=== PATIENT | male | born 1930 | race Caucasian/White ===

== ENCOUNTER 2017-08-14 18:04 | Emergency (ER) | payer BC, MEDICARE ==
--- NOTE | 2017-08-14 18:16 | Emergency Department Record ---
History of Present Illness - General Source: Patient, Family Mode of Arrival: Ambulatory Limitations: No limitations - History of Present Illness Initial Comments: 87 yo male presents with back pain. He has a recent known diagnosis of ureteral cancer. The pain started this morning. The pain is a throbbing feeling across the lower back. No abdominal pain. No nausea or vomiting. No fevers. His ureteral cancer was discovered about 4-5 months ago. He has a stent in the right kidney that Dr Addison placed and is now followed by Dr Broderick. His is undergoing chemotherapy for the cancer as well. He has had 2 rounds of chemo. No blood in the urine or in the stools. No numbness or tingling. No radiation to the legs or abdomen. MD Complaint: Back pain -: Hour(s) (9) Place: Home Radiation: None, Other (goes across the lower back) Severity: Moderate Quality: Aching Consistency: Intermittent Improves With: Other (better if standing, worse if sitting) Worsens With: Other (sitting) Context: Other (No injury) Associated Symptoms: Denies other symptoms <BONITA ALVA - Last Filed: 08/14/17 19:11> <Pauline Mauricio - Last Filed: 08/14/17 21:59> - General Chief Complaint: Back Pain/Injury Stated Complaint: CANCER AND LOWER BACK PAIN Time Seen by Provider: 08/14/17 18:11 - Related Data Home Medications Medication Instructions Recorded Confirmed Last Taken Aspirin [Aspir-Low] 81 mg PO DAILY 08/14/17 08/14/17 Unknown Allergies Allergy/AdvReac Type Severity Reaction Status Date / Time No Known Drug Allergies Allergy Verified 08/14/17 18:08 Review of Systems Constitutional: Denies: Chills, Fever, Malaise, Weakness Eyes: Denies: Eye discharge, Eye pain, Photophobia, Vision change ENT: Denies: Congestion, Throat pain Respiratory: Denies: Cough, Dyspnea, Hemoptysis, Stridor, Wheezes Cardiovascular: Denies: Chest pain, Palpitations, Syncope Endocrine: Denies: Fatigue, Polydipsia, Polyuria Gastrointestinal: Denies: Abdominal pain, Diarrhea, Nausea, Vomiting Genitourinary: Denies: Dysuria, Frequency, Hematuria Musculoskeletal: Reports: As per HPI, Back pain. Denies: Arthralgia Skin: Denies: Bruising, Change in color, Rash Neurological: Denies: Abnormal gait, Numbness, Tingling, Weakness Psychiatric: Denies: Anxiety Hematological/Lymphatic: Denies: Blood Clots, Easy bleeding, Easy bruising, Swollen glands <BONITA ALVA - Last Filed: 08/14/17 19:11> Physical Exam - General General Appearance: Alert, Oriented x3, Cooperative, No acute distress Limitations: No limitations - Head Head exam: Normal inspection - Eye Eye exam: Normal appearance. negative: Conjunctival injection, Periorbital swelling, Scleral icterus - ENT ENT exam: Normal exam, Mucous membranes moist Ear exam: Normal external inspection Nasal Exam: Normal inspection - Neck Neck exam: Normal inspection - Respiratory Respiratory exam: Normal lung sounds bilaterally. negative: Respiratory distress - Cardiovascular Cardiovascular Exam: Regular rate, Normal rhythm, Normal heart sounds - GI/Abdominal GI/Abdominal exam: Soft. negative: Distended, Guarding, Rebound, Rigid, Tenderness - Rectal Rectal exam: Deferred - exam: Deferred - Extremities Extremities exam: Full ROM, Normal capillary refill, Pedal edema (bilateral). negative: Normal inspection, Joint swelling, Tenderness - Back Back exam: Reports: Normal inspection, Muscle spasm. Denies: CVA tenderness (R) , CVA tenderness (L), Paraspinal tenderness, Rash noted, Tenderness, Vertebral tenderness - Neurological Neurological exam: Alert, Normal gait, Oriented X3 - Psychiatric Psychiatric exam: Normal affect, Normal mood - Skin Skin exam: Dry, Intact, Normal color, Warm <BONITA ALVA - Last Filed: 08/14/17 19:11> Course - Reevaluation(s) Reevaluation #1: EMR reviewed Prior CT of the chest and abdomen and pelvis reviewed 08/14/17 18:35 08/14/17 19:11 The labs were reviewed CBC with WBC 3.5, Hgb of 14.6 with PLATELETS of 29 The CMP is negative for acute changes with normal GFR > 60 Lactic Acid is 2.3 08/14/17 19:18 The case was turned over to Dr Mauricio for shift turnover Refer to her chart for additional results including the CT. <BONITA ALVA - Last Filed: 08/14/17 19:11> Vital Signs 08/14/17 08/14/17 08/14/17 18:09 19:39 20:44 Temperature 98.5 F Pulse Rate 84 Pulse Rate [ 66 77 Pulse Ox Probe] Respiratory 22 16 16 Rate Blood Pressure 175/92 Blood Pressure 131/76 136/78 [Right Arm] Pulse Ox 98 97 96 - Reevaluation(s) Reevaluation #2: 08/14/17 21:51 pt is pain free. ct shows stent in place and no further hydronephrosis. pt has an area that could be early diverticulitis however he had this finding in a previous ct and he has no llq tenderness or other findings suspicious of divertivulitis. findings and labs d/w dr curiel 08/14/17 21:54 <Pauline Mauricio - Last Filed: 08/14/17 21:59> Medical Decision Making - Lab Data Result diagrams: 08/14/17 18:38 08/14/17 18:38 <BONITA ALVA - Last Filed: 08/14/17 19:11> - Lab Data Result diagrams: 08/14/17 18:38 08/14/17 18:38 Lab Results 08/14/17 08/14/17 08/14/17 Range/Units 18:38 18:38 18:38 WBC 3.5 L (4.2-12.2) K/uL RBC 5.13 (4.40-5.70) M/uL Hgb 14.6 (14.0-18.0) gm/dl Hct 44.4 (42.0-52.0) % MCV 86.5 (81-97) fl MCH 28.5 (27-33) pg MCHC 32.9 (32-36) g/dl RDW 13.2 (11.5-14.5) % Plt Count 29 L* (130-400) K/uL MPV 8.6 (7.4-10.4) fl Neutrophils % 61.0 (47-80) % Band Neutrophils % 4.0 (0-5) % Eosinophils % Not Reportable Basophils % Not Reportable Lymphocytes 27.0 (16-45) % Monocytes 4.0 (0-9) % Platelet Estimate Decreased (NORMAL) RBC Morphology Normal Eosinophil Count 4.0 (0-6) % PT 11.4 (9.5-12.1) SECONDS INR 1.05 APTT 27.00 (24.5-39.1) SECONDS Sodium (136-145) mmol/L Potassium (3.4-4.5) mmol/L Chloride (98-107) mmol/L Carbon Dioxide (22-29) mmol/L Anion Gap (7-16) BUN (8-23) mg/dL Creatinine (0.7-1.2) mg/dL Estimated GFR mL/min Random Glucose (74-109) mg/dL Lactic Acid Calcium (8.8-10.2) mg/dL Total Bilirubin (0.2-1.0) mg/dL AST (10.0-50.0) U/L ALT (<41) U/L Alkaline Phosphatase (40-129) U/L Total Protein (6.6-8.7) g/dL Albumin (4.0-5.0) g/dL Globulin (1.4-4.8) gm/dL Albumin/Globulin Ratio (1.1-1.8) Urine Color Urine Appearance Urine pH (5.0-8.0) Ur Specific [place] (1.002-1.030) Urine Protein (NEGATIVE) Urine Glucose (UA) (NEGATIVE) Urine Ketones (NEGATIVE) Urine Blood (NEGATIVE) Urine Nitrite (NEGATIVE) Urine Bilirubin (NEGATIVE) Urine Urobilinogen (0.20 - 1.00) E.U./dL Ur Leukocyte Esterase (NEGATIVE) Urine RBC (NONE SEEN) Urine WBC (0-2/hpf) Urine Bacteria ABO Group O Rh Factor Positive Antibody Screen Negative (NEGATIVE) 08/14/17 08/14/17 08/14/17 Range/Units 18:38 18:38 21:00 WBC (4.2-12.2) K/uL RBC (4.40-5.70) M/uL Hgb (14.0-18.0) gm/dl Hct (42.0-52.0) % MCV (81-97) fl MCH (27-33) pg MCHC (32-36) g/dl RDW (11.5-14.5) % Plt Count (130-400) K/uL MPV (7.4-10.4) fl Neutrophils % (47-80) % Band Neutrophils % (0-5) % Eosinophils % Basophils % Lymphocytes (16-45) % Monocytes (0-9) % Platelet Estimate (NORMAL) RBC Morphology Eosinophil Count (0-6) % PT (9.5-12.1) SECONDS INR APTT (24.5-39.1) SECONDS Sodium 136 (136-145) mmol/L Potassium 4.6 H (3.4-4.5) mmol/L Chloride 96 L (98-107) mmol/L Carbon Dioxide 24.0 (22-29) mmol/L Anion Gap 16.0 (7-16) BUN 19 (8-23) mg/dL Creatinine 0.9 (0.7-1.2) mg/dL Estimated GFR > 60 mL/min Random Glucose 108 (74-109) mg/dL Lactic Acid Cancelled 2.3 H Calcium 9.4 (8.8-10.2) mg/dL Total Bilirubin 0.50 (0.2-1.0) mg/dL AST 21 (10.0-50.0) U/L ALT 15 (<41) U/L Alkaline Phosphatase 140 H (40-129) U/L Total Protein 7.4 (6.6-8.7) g/dL Albumin 3.7 L (4.0-5.0) g/dL Globulin 3.7 (1.4-4.8) gm/dL Albumin/Globulin Ratio 1.0 L (1.1-1.8) Urine Color Yellow Urine Appearance Sl cloudy Urine pH 7.0 (5.0-8.0) Ur Specific [place] 1.010 (1.002-1.030) Urine Protein Negative (NEGATIVE) Urine Glucose (UA) Negative (NEGATIVE) Urine Ketones Negative (NEGATIVE) Urine Blood Large H (NEGATIVE) Urine Nitrite Negative (NEGATIVE) Urine Bilirubin Negative (NEGATIVE) Urine Urobilinogen 0.2 (0.20 - 1.00) E.U./dL Ur Leukocyte Esterase Trace H (NEGATIVE) Urine RBC 16 - 25 (NONE SEEN) Urine WBC 3 - 5 (0-2/hpf) Urine Bacteria Few ABO Group Rh Factor Antibody Screen (NEGATIVE) <Pauline Mauricio - Last Filed: 08/14/17 21:59> Disposition <BONITA ALVA - Last Filed: 08/14/17 19:11> Disposition: Discharge <Pauline Mauricio - Last Filed: 08/14/17 21:59> Clinical Impression: Thrombocytopenia Back pain Qualifiers: Back pain location: low back pain Chronicity: acute Back pain laterality: bilateral Sciatica presence: without sciatica Qualified Code(s): M54.5 - Low back pain Disposition: Home, Self-Care Condition: (1) Good Instructions: Low Back Strain (ED), Immune Thrombocytopenia (ED) Additional Instructions: follow up with dr curiel in am. avoid falling. return sooner if worse Forms: Patient Portal Access Quality - Quality Measures Quality Measures: N/A - Blood Pressure Screening Does Patient Have Any of the Following: No Blood Pressure Classification: Hypertensive Reading Systolic Measurement: 175 Diastolic Measurement: 92 Screening for High Blood Pressure: < Pre-Hypertensive BP, F/U Documented > [ G8950] Pre-Hypertensive Follow-up Interventions: Referral to alternative/primary care provider. <BONITA ALVA - Last Filed: 08/14/17 19:11> - Blood Pressure Screening Does Patient Have Any of the Following: No Blood Pressure Classification: Hypertensive Reading Systolic Measurement: 175 Diastolic Measurement: 92 <Pauline Mauricio - Last Filed: 08/14/17 21:59>
[2017-08-14] MEDS ORDERED: MORPHINE SULFATE 5 MG/ML PFS IVP ONE (18:35)
[2017-08-14 18:49] LABS: HEMATOCRIT 44.4 % (42.0-52.0); HEMOGLOBIN 14.6 gm/dl (14.0-18.0); MEAN CELL VOLUME 86.5 fl (81-97); MEAN CORPUSCULAR HEMOGLOBIN 28.5 pg (27-33); MEAN CORPUSCULAR HGB CONC 32.9 g/dl (32-36); MEAN PLATELET VOLUME 8.6 fl (7.4-10.4); RED BLOOD COUNT 5.13 M/uL (4.40-5.70); RED CELL DISTRIBUTION WIDTH 13.2 % (11.5-14.5); WHITE BLOOD COUNT W/O DIFF 3.5 K/uL (4.2-12.2)
[2017-08-14 19:01] LABS: PLATELET COUNT 29 K/uL (130-400)
[2017-08-14 19:02] LABS: INR 1.05; PLATELET ESTIMATE DECREASED (NORMAL); PROTHROMBIN TIME (PATIENT) 11.4 SECONDS (9.5-12.1)
[2017-08-14 19:06] LABS: ALBUMIN 3.7 g/dL (4.0-5.0); ALKALINE PHOSPHATASE 140 U/L (40-129); ALT/SGPT 15 U/L (<41); AST/SGOT 21 U/L (10.0-50.0); BLOOD UREA NITROGEN 19 mg/dL (8-23); CREATININE 0.9 mg/dL (0.7-1.2); EST GLOMERULAR FILTRATION RATE > 60 mL/min; GLUCOSE,RANDOM 108 mg/dL (74-109); TOTAL PROTEIN 7.4 g/dL (6.6-8.7)
[2017-08-14 19:50] LABS: ABO GROUP O; ANTIBODY SCREEN NEGATIVE (NEGATIVE); RH TYPE POSITIVE
[2017-08-14 21:07] LABS: URINE BILIRUBIN NEGATIVE (NEGATIVE); URINE BLOOD LARGE (NEGATIVE); URINE COLOR YELLOW; URINE GLUCOSE (UA) NEGATIVE (NEGATIVE); URINE KETONE NEGATIVE (NEGATIVE); URINE LEUKOCYTE ESTERASE TRACE (NEGATIVE); URINE NITRITE NEGATIVE (NEGATIVE); URINE PROTEIN NEGATIVE (NEGATIVE); URINE UROBILINOGEN 0.2 E.U./dL (0.20 - 1.00)
[2017-08-14 21:16] LABS: URINE BACTERIA FEW; URINE RBC 16 - 25 (NONE SEEN)
[2017-08-14 21:17] LABS: URINE APPEARANCE SL CLOUDY
[2017-08-14] MEDS ORDERED: HYDROCODONE/APAP 5/325MG TABLET PO ONE (21:58)
--- NOTE | 2017-08-16 09:58 | CT SCAN REPORT ---
DATE: 08/14/2017. EXAM: CT SCAN OF THE ABDOMEN AND PELVIS. HISTORY: Lower back pain. TECHNIQUE: CT of the abdomen and pelvis was performed following the intravenous administration of 100 mL of Omnipaque 300 contrast. Oral contrast was also utilized. COMPARISON: Prior CT urogram from 04/23/2017. FINDINGS: Limited evaluation of the lung bases is unremarkable. Degenerative changes of the lumbar spine. Osseous structures are otherwise grossly intact. Fatty infiltrative change to the liver. No focal liver lesions. The spleen, adrenal glands, and pancreas are unremarkable. The gallbladder is present. Simple cyst in the superior pole of the left kidney. There is a right ureteral stent in place. Resolution of previously described right-sided hydronephrosis. Redemonstrated is retroperitoneal adenopathy, the largest node in the distal aortocaval recess measuring 1.6 x 1.4 cm. Similar findings were present previously. No free air or free fluid. No evidence for bowel obstruction. Fat -containing anterior abdominal wall hernia near the midline. Sigmoid diverticulosis. Minor inflammatory fat stranding in the left lower quadrant could reflect minor diverticulitis. However, similar findings were present on the prior CT. IMPRESSION: 1. PLACEMENT OF A RIGHT URETERAL STENT. RESOLUTION OF PREVIOUSLY DESCRIBED HYDRONEPHROSIS. 2. SIMPLE LOBULATED LEFT RENAL CYST. 3. SOME EQUIVOCAL FAT STRANDING IN THE LEFT LOWER QUADRANT WITH SEVERAL SIGMOID DIVERTICULA. SIMILAR FINDINGS ARE PRESENT BILATERALLY. MINOR DIVERTICULITIS IS NOT ENTIRELY EXCLUDED. 4. FAT-CONTAINING ANTERIOR ABDOMINAL WALL HERNIA. 5. FATTY INFILTRATIVE CHANGE TO THE LIVER. 6. RETROPERITONEAL ADENOPATHY WHICH IS SIMILAR TO THE PRIOR EXAMINATION. JOB NUMBER: [id number] MTDD
== END 2017-08-14 22:16 | disposition home or self-care (01) ==
LOC: ER 18:04
DX: M54.5 Low back pain (principal); C66.9 Malignant neoplasm of unspecified ureter; I48.91 Unspecified atrial fibrillation; Z87.891 Personal history of nicotine dependence
CPT/HCPCS: 99284 ×2; 96374; 83605; 85730; 85610; 80053; 81001; 85027; 86900; 86901; 86850; 74177; Q9967; J2270

== ENCOUNTER 2017-10-28 17:30 | Emergency (ER) | payer MEDICARE, BC ==
--- NOTE | 2017-10-28 18:28 | Emergency Department Record ---
History of Present Illness - General Chief Complaint: Cough Stated Complaint: CHEST CONGESTION,GUGGLING SOUND WHILE BREATHING Time Seen by Provider: 10/28/17 18:22 Source: Patient, Family Mode of Arrival: Ambulatory Limitations: No limitations - History of Present Illness Initial Comments: 87 yo male presents with a cough for 4 days. The cough is productive at times. The sputum is yellow to green. No blood. No fevers. No chills. No back, chest or abdominal pain. No edema. He has a history of ureteral cancer that currently has a stent and radiation therapy. MD Complaint: Cough, Nasal congestion, Rhinorrhea Onset/Timin -: Days(s) (4) Severity: Mild Consistency: Constant Improves With: Nothing Worsens With: Other (Coughing) Associated Symptoms: Cough, Nasal congestion Treatments Prior to Arrival: None - Related Data Home Medications Medication Instructions Recorded Confirmed Last Taken Ascorbic Acid [C-1000] 1,000 mg PO DAILY 10/28/17 10/28/17 Unknown Cinnamon Bark [Cinnamon] 500 mg PO DAILY 10/28/17 10/28/17 Unknown Furosemide [Lasix] 20 mg PO ASDIR 10/28/17 10/28/17 Unknown Melva 1,000 mg PO DAILY 10/28/17 10/28/17 Unknown Hydrocodone/Acetaminophen [[place] 1 each PO Q4H PRN 10/28/17 10/28/17 Unknown 5-325 Tablet] Magnesium Oxide [Magnesium] 500 mg PO DAILY 10/28/17 10/28/17 Unknown Metoprolol Succinate [Toprol Xl] 25 mg PO DAILY 10/28/17 10/28/17 Unknown Nitroglycerin 0.4 mg SL ASDIR 10/28/17 10/28/17 Unknown Previous Rx's Medication Instructions Recorded Azithromycin [Zithromax] 250 mg PO DAILY #4 tab 10/28/17 Allergies Allergy/AdvReac Type Severity Reaction Status Date / Time No Known Drug Allergies Allergy Verified 08/14/17 18:08 Travel Screening - Travel/Exposure Within Last 30 Days Have you traveled within the last 30 days?: No Review of Systems Constitutional: Denies: Chills, Fever, Malaise, Weakness Eyes: Denies: Eye discharge, Eye pain, Photophobia, Vision change ENT: Reports: Congestion. Denies: Ear pain, Epistaxis, Hearing loss, Throat pain Respiratory: Reports: Cough, Dyspnea. Denies: Hemoptysis, Stridor, Wheezes Cardiovascular: Denies: Chest pain, Palpitations, Syncope Endocrine: Denies: Fatigue, Polydipsia, Polyuria Gastrointestinal: Denies: Abdominal pain, Diarrhea, Nausea, Vomiting Genitourinary: Denies: Dysuria, Frequency, Hematuria Musculoskeletal: Denies: Arthralgia, Back pain, Joint swelling, Myalgia, Neck pain Skin: Denies: Bruising, Change in color, Rash Neurological: Denies: Headache, Numbness, Weakness Psychiatric: Denies: Anxiety Hematological/Lymphatic: Denies: Blood Clots, Easy bleeding, Easy bruising, Swollen glands Past Medical History - SOCIAL HISTORY Smoking Status: Former smoker Alcohol Use: None Drug Use: None - RESPIRATORY Hx Respiratory Disorders: No - CARDIOVASCULAR Hx Cardio Disorders: Yes Hx Irregular Heartbeat: Yes Hx Pacemaker/Defib: Yes (atrial fib) - NEURO Hx Neuro Disorders: No - GI Hx GI Disorders: No - Hx Genitourinary Disorders: No - ENDOCRINE Hx Endocrine Disorders: No - MUSCULOSKELETAL Hx Musculoskeletal Disorders: No - PSYCH Hx Psych Problems: No - HEMATOLOGY/ONCOLOGY Hx Hematology/Oncology Disorders: Yes Hx Cancer: Yes (Ureter tumor) Hx Chemotherapy: Yes Hx Radiation Therapy: No Family Medical History Any Significant Family History?: Yes Hx Cancer: Father Hx Heart Disease: Brother/Sister Hx HTN: Brother/Sister Hx Stroke: Mother, Brother/Sister Physical Exam - General General Appearance: Alert, Oriented x3, Cooperative, No acute distress Limitations: No limitations - Head Head exam: Normal inspection - Eye Eye exam: Normal appearance, PERRL. negative: Conjunctival injection, Scleral icterus - ENT ENT exam: Normal exam, Mucous membranes moist Ear exam: Normal external inspection Nasal Exam: Discharge. negative: Active bleeding Mouth exam: Normal external inspection Teeth exam: Normal inspection Throat exam: Normal inspection. negative: Tonsillar erythema, Tonsillomegaly, Tonsillar exudate, R peritonsillar mass, L peritonsillar mass - Neck Neck exam: Normal inspection, Full ROM. negative: Lymphadenopathy, Tenderness - Respiratory Respiratory exam: Rhonchi (few scattered in the right upper lung, non labored, speaks in full sentances). negative: Normal lung sounds bilaterally - Cardiovascular Cardiovascular Exam: Regular rate, Normal rhythm, Normal heart sounds - GI/Abdominal GI/Abdominal exam: Soft. negative: Tenderness - Rectal Rectal exam: Deferred - exam: Deferred - Extremities Extremities exam: Normal inspection, Full ROM, Normal capillary refill. negative: Pedal edema, Tenderness - Back Back exam: Reports: Normal inspection, Full ROM. Denies: CVA tenderness (R), CVA tenderness (L), Muscle spasm, Rash noted, Tenderness - Neurological Neurological exam: Alert, Normal gait, Oriented X3 - Psychiatric Psychiatric exam: Normal affect, Normal mood - Skin Skin exam: Dry, Intact, Normal color, Warm Course Vital Signs 10/28/17 18:14 Temperature 97.6 F Pulse Rate 95 H Respiratory 20 Rate Blood Pressure 142/72 Pulse Ox 95 - Reevaluation(s) Reevaluation #1: Vitals reviewed No tachycardia or hypoxia No distress, non labored, speaks easily if full sentences. Azithromycin ordered CXR and Flu swab sent 10/28/17 18:33 10/28/17 19:07 The influenza are negative. 10/28/17 19:27 The XR was reviewed Disposition Disposition: Discharge Clinical Impression: Bronchitis Disposition: Home, Self-Care Condition: (1) Good Instructions: Acute Bronchitis (ED) Additional Instructions: Call your doctor for close follow up Return to the ER for a recheck any time if you have fever, short of breath or any new concerns. Take the Azithromycin daily for the next 4 days. Prescriptions: Azithromycin [Zithromax] 250 mg PO DAILY #4 tab Forms: Patient Portal Access Time of Disposition: 19:29 Quality - Quality Measures Quality Measures: N/A - Blood Pressure Screening Does Patient Have Any of the Following: No Blood Pressure Classification: Hypertensive Reading Systolic Measurement: 142 Diastolic Measurement: 72 Screening for High Blood Pressure: < Pre-Hypertensive BP, F/U Documented > [ G8950] Pre-Hypertensive Follow-up Interventions: Referral to alternative/primary care provider.
[2017-10-28] MEDS ORDERED: AZITHROMYCIN 500 MG TABLET PO ONE (18:30)
[2017-10-28 18:50] LABS: INFLUENZA A NEGATIVE (NEGATIVE); INFLUENZA B NEGATIVE (NEGATIVE)
--- NOTE | 2017-10-29 19:23 | RADIOLOGY REPORT ---
EXAM: CHEST 2 VIEWS HISTORY: DIFFICULTY IN BREATHING. TECHNIQUE: Frontal and lateral views of the chest were performed. COMPARISON: 07/24/2017. FINDINGS: Left-sided pacing device. Right-sided [id number] catheter in place. Cardiomegaly. No pulmonary vascular congestion. No definitive infiltrate or pleural effusion. IMPRESSION: CARDIOMEGALY. NO ACUTE PROCESS. JOB NUMBER: [id number] MTDD
== END 2017-10-28 19:38 | disposition home or self-care (01) ==
LOC: ER 17:30
DX: J20.9 Acute bronchitis, unspecified (principal); R06.00 Dyspnea, unspecified; I48.91 Unspecified atrial fibrillation; Z87.891 Personal history of nicotine dependence; Z85.54 Personal history of malignant neoplasm of ureter
CPT/HCPCS: 71020; 87400; 99283; 99284

== ENCOUNTER 2018-04-08 07:21 | Emergency (ER) | payer MEDICARE, BC ==
--- NOTE | 2018-04-08 07:55 | Emergency Department Record ---
History of Present Illness - General Chief Complaint: Fall Injury Stated Complaint: FALL Time Seen by Provider: 04/08/18 07:42 Source: Patient, RN notes reviewed Mode of Arrival: EMS - History of Present Illness Initial Comments: patient fell and walker went over when he was getting out of bed. his left arm was cramping and his legs seemed to slow moving. No LOC, Paatient pressed his life line and EMS responded and brought him to the ED. Patient lacerated the left side of his head . Deep abrasion no sutures needed. No neck pain alert O times 3. Moving all for extremities and he has his chronic back pain. History of vertigo MD Complaint: Fall Onset/Timin -: Minutes(s) Fall From: Standing When Fall Occurred: Just prior to arrival Fall Witnessed: No Place Fall Occurred: Home Loss of Consciousness: None Prolonged Down Time?: No Symptoms Prior to Fall: None Location: Head Associated Symptoms: Denies - Odin Coma Scale Eye Response: (4) Open spontaneously Motor Response: (6) Obeys commands Verbal Response: (5) Oriented Odin Total: 15 - Related Data Allergies Allergy/AdvReac Type Severity Reaction Status Date / Time No Known Drug Allergies Allergy Verified 04/08/18 07:25 Travel Screening - Travel/Exposure Within Last 30 Days Have you traveled within the last 30 days?: No Review of Systems Reviewed: No additional complaints except as noted below Constitutional: Reports: As per HPI. Denies: Chills, Fever, Malaise, Night sweats, Weakness, Weight change Eyes: Reports: As per HPI. Denies: Eye discharge, Eye pain, Photophobia, Vision change ENT: Reports: As per HPI. Denies: Congestion, Dental pain, Ear pain, Epistaxis , Hearing loss, Throat pain Respiratory: Reports: As per HPI. Denies: Cough, Dyspnea, Hemoptysis, Stridor, Wheezes Cardiovascular: Reports: As per HPI. Denies: Arrhythmia, Chest pain, Dyspnea on exertion, Edema, Murmurs, Orthopnea, Palpitations, Paroxysmal nocturnal dyspnea, Rheumatic Fever, Syncope Endocrine: Reports: As per HPI. Denies: Fatigue, Heat or cold intolerance, Polydipsia, Polyuria Gastrointestinal: Reports: As per HPI. Denies: Abdominal pain, Constipation, Diarrhea, Hematemesis, Hematochezia, Melena, Nausea, Vomiting Genitourinary: Reports: As per HPI. Denies: Dysuria, Frequency, Hematuria, Incontinence, Retention, Testicular pain, Testicular mass, Urgency Musculoskeletal: Reports: As per HPI. Denies: Arthralgia, Back pain, Gout, Joint swelling, Myalgia, Neck pain Skin: Reports: As per HPI. Denies: Bruising, Change in color, Change in hair/ nails, Lesions, Pruritus, Rash Neurological: Reports: As per HPI. Denies: Abnormal gait, Confusion, Headache, Numbness, Paresthesias, Seizure, Tingling, Tremors, Vertigo, Weakness Psychiatric: Reports: As per HPI. Denies: Anxiety, Auditory hallucinations, Depression, Homicidal thoughts, Suicidal thoughts, Visual hallucinations Hematological/Lymphatic: Reports: As per HPI. Denies: Anemia, Blood Clots, Easy bleeding, Easy bruising, Swollen glands Past Medical History - SOCIAL HISTORY Smoking Status: Former smoker Alcohol Use: None Drug Use: None - RESPIRATORY Hx Respiratory Disorders: No - CARDIOVASCULAR Hx Cardio Disorders: Yes Hx Irregular Heartbeat: Yes Hx Pacemaker/Defib: Yes (atrial fib) - NEURO Hx Neuro Disorders: No - GI Hx GI Disorders: No - Hx Genitourinary Disorders: No - ENDOCRINE Hx Endocrine Disorders: No - MUSCULOSKELETAL Hx Musculoskeletal Disorders: No - PSYCH Hx Psych Problems: No - HEMATOLOGY/ONCOLOGY Hx Hematology/Oncology Disorders: Yes Hx Cancer: Yes (Ureter tumor) Hx Chemotherapy: Yes Hx Radiation Therapy: No Family Medical History Any Significant Family History?: Yes Hx Cancer: Father Hx Heart Disease: Brother/Sister Hx HTN: Brother/Sister Hx Stroke: Mother, Brother/Sister Physical Exam - General General Appearance: Alert, Oriented x3, Cooperative, Mild distress - Head Head exam: Normal inspection - Eye Eye exam: Normal appearance, PERRL Pupils: Normal accommodation - ENT ENT exam: Normal exam, Mucous membranes moist, Normal external ear exam, Normal orophraynx, TM's normal bilaterally Ear exam: Normal external inspection. negative: External canal tenderness Nasal Exam: Normal inspection. negative: Discharge, Sinus tenderness Mouth exam: Normal external inspection, Tongue normal Teeth exam: Normal inspection. negative: Dental caries Throat exam: Normal inspection. negative: Tonsillar erythema, Tonsillar exudate - Neck Neck exam: Normal inspection, Full ROM. negative: Tenderness - Respiratory Respiratory exam: Normal lung sounds bilaterally. negative: Respiratory distress - Cardiovascular Cardiovascular Exam: Regular rate, Normal rhythm, Normal heart sounds - GI/Abdominal GI/Abdominal exam: Soft, Normal bowel sounds. negative: Tenderness - Rectal Rectal exam: Deferred - exam: Deferred - Extremities Extremities exam: Normal inspection, Full ROM, Normal capillary refill. negative: Tenderness - Back Back exam: Reports: Normal inspection, Full ROM. Denies: Muscle spasm, Rash noted, Tenderness - Neurological Neurological exam: Alert, Normal gait, Oriented X3, Reflexes normal - Psychiatric Psychiatric exam: Normal affect, Normal mood - Skin Skin exam: Dry, Intact, Normal color, Warm Course Vital Signs 04/08/18 07:24 Temperature 97.9 F Pulse Rate 86 Respiratory 20 Rate Blood Pressure 159/82 Pulse Ox 95 - Reevaluation(s) Reevaluation #1: patient using and marijuana spray for pain and family said they are going to stop that to see if his dizziness gets better. Cha going to his oncologist today for a wrap up of his disease bladder cancer 04/08/18 08:35 Medical Decision Making - Lab Data Result diagrams: 04/08/18 07:00 04/08/18 07:00 Disposition Clinical Impression: Abrasion Fall Qualifiers: Encounter type: initial encounter Qualified Code(s): W19.XXXA - Unspecified fall, initial encounter Disposition: Home, Self-Care Condition: (1) Good Instructions: Fall Prevention for Older Adults (ED), Head Injury (ED), Abrasion (ED) Additional Instructions: follow up with Dr. Del Toro in 5 to 7 days tylenol for pain and norco as needed Forms: Patient Portal Access Time of Disposition: 08:11 Quality - Quality Measures Quality Measures: N/A - Blood Pressure Screening Does Patient Have Any of the Following: No Blood Pressure Classification: Pre-Hypertensive BP Reading Systolic Measurement: 159 Diastolic Measurement: 82 Screening for High Blood Pressure: < Pre-Hypertensive BP, F/U Documented > [ [id number]] Pre-Hypertensive Follow-up Interventions: Referral to alternative/primary care provider.
[2018-04-08 08:11] LABS: HEMATOCRIT 51.3 % (42.0-52.0); HEMOGLOBIN 16.8 gm/dl (14.0-18.0); MEAN CELL VOLUME 92.6 fl (81-97); MEAN CORPUSCULAR HEMOGLOBIN 30.3 pg (27-33); MEAN CORPUSCULAR HGB CONC 32.7 g/dl (32-36); PLATELET COUNT 177 K/uL (130-400); RED BLOOD COUNT 5.54 M/uL (4.40-5.70); RED CELL DISTRIBUTION WIDTH 15.9 % (11.5-14.5)
[2018-04-08 08:24] LABS: CREATININE 1.4 mg/dL (0.7-1.2)
[2018-04-08 08:33] LABS: PLATELET ESTIMATE NORMAL (NORMAL)
== END 2018-04-08 09:00 | disposition home or self-care (01) ==
LOC: ER 07:21
DX: S00.81XA Abrasion of other part of head, initial encounter (principal); R42 Dizziness and giddiness; R29.898 Other symptoms and signs involving the musculoskeletal system; W06.XXXA Fall from bed, initial encounter; I48.91 Unspecified atrial fibrillation; Z87.891 Personal history of nicotine dependence; Y92.003 Bedroom of unspecified non-institutional (private) residence as the place of occurrence of the external cause
CPT/HCPCS: 80048; 85027; 99283